=== PATIENT | male | born 1980 | race Caucasian/White ===

== ENCOUNTER 2024-02-01 10:08 | Emergency (ER) | payer SELFPAY ==
[2024-02-01] VITALS (9 sets, daily range): BP systolic 113–148; BP diastolic 79–101; PULSE 105–134; RESP 16–22; TEMP 36.6; O2SAT 95–99; BMI 27.4
--- NOTE | 2024-02-01 10:25 | PC.NURSE ---
Dr. Crespo at [facility] for pt eval
[2024-02-01 10:38] LABS: Appearance,Urine SL CLOUDY (Clear); Blood, Urine Negative (Negative); Color,Urine YELLOW (Yellow); Glucose,Urine (UA) Negative (Negative); Ketones,Urine Negative (Negative); Leukocyte Esterase,Urine Negative (Negative); Microscopic, Urine URINE MICROSCOPIC (MICROSCOPIC); Nitrate,Urine Negative (Negative); PH,Urine 6.5 (5.0-8.5); Protein,Urine TRACE (Negative); Specific Gravity, Urine 1.025 (1.005-1.030)
[2024-02-01 10:39] LABS: Occult Blood,Stool Negative (Negative)
[2024-02-01 10:42] LABS: Bilirubin,Urine 1+ (Negative)
--- NOTE | 2024-02-01 10:47 | PC.NURSE ---
nurses unable to obtain iv access. md @ bedside with ultrasound
--- NOTE | 2024-02-01 10:51 | HMH.EDGENADL ---
Discharge Plan Disposition Patient Disposition: Xfer Other Referrals Follow up/Referrals: Provider,Referral, MD [Primary Care Provider] - See instructions Clinical Impressions Clinical Impression: Nausea & vomiting, Hematemesis, Alcoholism, Melena, Acute alcoholic hepatitis, Acute calculous cholecystitis Instructions Patient Instructions: DI for Gastrointestinal Bleeding Discharge ED Provider: Zina Crespo General Adult HPI General Chief complaint: GI Bleed Stated complaint: vomiting blood abd pain intoxicated Time Seen by Provider: 02/01/24 10:12 Mode of Arrival: Ambulatory Source of Information: Patient and Relative Limitations: No Limitations Description of Symptoms (Recalled from ER Triage Doc. by RN): vomiting blood and passing bloody stool. drinks 1 gallon a day for 8 years. hep c History of Present Illness HPI narrative: Patient is a 43-year-old male presenting today with nausea and vomiting. Has a history of hepatitis C has never been treated never been diagnosed with cirrhosis that he knows of in the past does not know whether or not he has esophageal varices. Did injection drugs many years ago but has not used drugs for many years and is only been drinking. States he has been drinking 1 gallon of vodka daily for as long as he can remember. Has had nausea and vomiting states that he had multiple different colored types of vomit but at the end of vomiting had most recently red vomit states that it did look like blood but not whole blood. He has been retching numerous times in the emergency department without any active hematemesis. He did state he had a black-colored stool yesterday. No history of upper GI bleeds that he is aware. No other medical problems states he never goes to the doctor. Related Data Allergies Allergy/AdvReac Type Severity Reaction Status Date / Time No Known Allergies Allergy Verified 02/01/24 10:25 [facility] Disclaimer: The information contained in this section may have been updated after the patient was seen, as this information can be updated by other users. Social History Smoking Status: Current every day smoker alcohol intake: never current occupational status: other Travel in the last 8 weeks: None ROS Obtained: Yes All systems reviewed & no additional complaints except as documented Physical Exam General General appearance: alert, anxious and other (Agitated) Respiratory Respiratory exam: Present normal lung sounds bilaterally and respiratory distress Cardiovascular Cardiovascular exam: Present tachycardia Abdominal Exam Abdominal exam: Present soft and tenderness (Right upper quadrant tenderness) Neurological Exam Neurological exam: Present alert and oriented X3 Medical Decision Making [place] Inquiry Pt receiving controlled substance: No Vital Signs: 02/01/24 10:15 02/01/24 10:20 02/01/24 11:01 Temperature 97.9 F Temperature Source Oral Pulse Rate 120 H 120 H Pulse Rate [Right Radial] 134 H Respiratory Rate 20 22 20 Blood Pressure 148/101 H 113/87 Blood Pressure [Right Arm] 148/101 H Blood Pressure Mean 121 96 Blood Pressure Mean [Right Arm] 116 02 Sat by Pulse Oximetry 99 95 99 Oxygen Delivery Method Room Air 02/01/24 11:30 Temperature Temperature Source Pulse Rate 112 H Pulse Rate [Right Radial] Respiratory Rate 20 Blood Pressure 128/80 Blood Pressure [Right Arm] Blood Pressure Mean 93 Blood Pressure Mean [Right Arm] 02 Sat by Pulse Oximetry 97 Oxygen Delivery Method Lab Data Lab results reviewed: Yes I reviewed the patient's lab results. Lab Results 02/01/24 10:17: Urine Color Yellow, Urine Appearance Sl cloudy, Urine pH 6.5, Ur Specific [place] 1.025, Urine Protein Trace, Urine Glucose (UA) Negative, Urine Ketones Negative, Urine Blood Negative, Urine Nitrate Negative, Urine Bilirubin 1+ A, Urine Urobilinogen 1.0, Ur Leukocyte Esterase Negative, Urine RBC None, Urine WBC Occasional, Ur Squamous Epith Cells Occasional, Amorphous Sediment 2+, Urine Bacteria 1+ 02/01/24 10:30: Stool Occult Blood Negative 02/01/24 10:50: WBC 9.4, RBC 4.21 L, Hgb 13.8 L, Hct 42.3, MCV 100.6 H, MCH 32.8 H, MCHC 32.6, RDW 14.6, Plt Count 339, MPV 9.1, Neut % (Auto) 59.2, Lymph % (Auto) 32.1, [place] % (Auto) 6.9, Eos % (Auto) 0.5, Baso % (Auto) 1.3, Neut # (Auto) 5.6, Lymph # (Auto) 3.0, [place] # (Auto) 0.7, Eos # (Auto) 0.1, Baso # (Auto) 0.1, Sodium 143, Potassium 4.1, Chloride 109 H, Carbon Dioxide 26, Anion Gap 12.1, BUN 13, Creatinine 0.70, Estimated Creat Clear 144, Estimated GFR 123, Est GFR ( Amer) 149, Glucose 119 H, Calcium 9.2, Magnesium 2.0, Total Bilirubin 0.7, AST 265 H, ALT 154 H, Alkaline Phosphatase 124, Troponin I 0.03, Total Protein 8.3 H, Albumin 4.1, Globulin 4.2 H, Albumin/Globulin Ratio 1.0 L, Lipase 251, Plasma/Serum Alcohol 263 H 02/01/24 10:50 02/01/24 10:50 Orders (Tests/Meds): ED MEDICATIONS Generic Name Dose Route Start Last Admin Trade Name Jimmyq PRN Reason Stop Dose Admin Iopamidol 75 ml 02/01/24 11:46 02/01/24 11:47 Iopamidol-370 (76%);100ml Bottle IV 02/01/24 11:47 75 ml ONCE ONE Administration Sodium Chloride 10 ml 02/01/24 10:27 02/01/24 11:13 Sodium Chloride 0.9% 10ml Flush Syringe IV 03/02/24 10:26 10 ml NEEDED PRN Administration Maintain IV Site Sodium Chloride 10 ml 02/01/24 10:54 02/01/24 11:12 Sodium Chloride 0.9% 10ml Vial IV 03/02/24 10:53 10 ml NEEDED PRN Administration to Dilute Lorazepam inj Sodium Chloride 10 ml 02/01/24 11:46 02/01/24 11:47 Sodium Chloride 0.9% 10ml Syr (Rad Only) IV 02/01/24 11:47 10 ml ONCE ONE Administration Discontinued Medications Generic Name Dose Route Start Last Admin Trade Name Jimmyq PRN Reason Stop Dose Admin Lactated Ringer's 1,000 mls @ 999 mls/hr 02/01/24 10:30 02/01/24 11:12 Lactated Ringer's 1000 Ml Bag IV 02/01/24 11:30 999 mls/hr .Q1H1M ALINA Administration Lorazepam 1 mg 02/01/24 10:54 02/01/24 11:12 Lorazepam 2mg/Ml Vial IV 02/01/24 10:55 1 mg ONCE ONE Administration Ondansetron HCl 4 mg 02/01/24 10:30 02/01/24 11:12 Ondansetron 4mg/2ml Vial IV 02/01/24 10:31 4 mg ONCE ONE Administration ORDERS Category Date Time Status Type and Screen Stat BBK 02/01/24 10:[address] abdomen pelvis w con Stat Cat Scan 02/01/24 10:56 Taken POCUS Point of Care (ER Only) Stat Exams 02/01/24 11:43 Ordered Complete Blood Count Auto Diff Stat Lab 02/01/24 10:50 Completed Comprehensive Metabolic Panel Stat Lab 02/01/24 10:50 Completed Ethanol [Ethyl Alcohol] Stat Lab 02/01/24 10:50 Completed HCV RNA PCR, Quant Stat Lab 02/01/24 10:50 Received Lactic Acid Stat Lab 02/01/24 10:30 Ordered Lipase Stat Lab 02/01/24 10:50 Completed Magnesium Stat Lab 02/01/24 10:50 Completed Occult Blood,Stool Stat Lab 02/01/24 10:30 Completed PT/PTT Stat Lab 02/01/24 10:50 Received Trop I [Troponin I] Stat Lab 02/01/24 10:50 Completed Troponin I Q3H Lab 02/01/24 13:30 Ordered Troponin I Q3H Lab 02/01/24 16:30 Ordered UA [Urinalysis and Microscopic] Stat Lab 02/01/24 10:17 Completed ECG Data Tracing #1: I reviewed this ECG and interpreted as documented below: Ventricular rate of 109 sinus tachycardia no acute ischemic changes noted no significant conduction abnormalities normal axis Medical Decision Narrative: Patient is a 43-year-old male presents today with nausea and vomiting with historical complaints of hematemesis and melena. In the setting of a history of hepatitis C and chronic drinking the major concern would be decompensated cirrhosis and esophageal variceal bleeding. However patient has no stigmata of cirrhosis on my rectal exam he did not have melena his heme occult is negative. Also he has been vomiting numerous times on the emergency department without any hematemesis. So this is not a clear diagnosis at the moment. He does have significant abdominal tenderness will get a CT scan for further evaluation and management. He has some very mild withdrawal symptoms at the moment Ativan has been given IV fluids initiated and will await further diagnostic testing for additional therapeutic interventions. Currently holding off on PPI octreotide Rocephin etc. Reassessment 1155 patient feeling much better vital signs remained stable and are improving. Still has persistent and severe right upper quadrant abdominal pain and tenderness. CT scan was performed which I first interpreted shows a distended gallbladder with a gallstone in the neck of the gallbladder. Bedside ultrasound was subsequently performed he did have a positive sonographic Cadena's has extensive biliary sludge and large stone in the neck of the gallbladder all consistent with acute cholecystitis. However his clinical picture is extensively clouded given the fact that he has significant elevations in his LFTs consistent with a pattern of acute alcoholic hepatitis. Discriminant function is low no indication for IV steroids. Additionally with regards to the concern for possible varices cannot rule this out but I think it is unlikely at this point. Platelets are normal his LFT elevations are consistent with acute alcoholic hepatitis but any type of scoring system in this particular case would not be helpful to screen to him to a low risk. Specifically from a Glascow Blatchford score he is not can to be low risk as he was tachycardic, reported melena and has a disease of hepatic disease least an infectious disease that could cause liver disease. No definitive evidence of advanced fibrosis. From a noninvasive fibrosis scoring standpoint his fib 4 is 2.7 which would indicate at least F3 however the scoring system is likely skewed both from patient's age as well as the fact that he has an alternative diagnosis to be causing transaminase elevations. Nonetheless I cannot prescribe for him to a low risk category. Therefore I do not have gastroenterology at our hospital that can deal with possible variceal hemorrhaging. I did speak with her hospital medicine doctor who agrees that he would not be comfortable managing this here. I did not yet speak to a surgeon. Also from a cholecystitis standpoint his right upper quadrant abdominal discomfort could be from his acute inflammatory process not necessarily cholecystitis in this patient will need multidisciplinary care to further differentiate this. I will discuss the case with [facility]. Reassessment 12:07 PM patient remains hemodynamically stable I spoke with Dr. Carvalho in [facility] who accepted the patient for further evaluation and management to the [facility] emergency department. Procedures Miscellaneous Procedure Procedure Performed: Limited RUQ ultrasound Indication: Abdominal pain Identified structures: -Gallbladder -Gallbladder wall -Common bile duct -Liver Findings: Positive sonographic Cadena's there is biliary sludge and a large gallstone in the gallbladder neck no pericholecystic fluid into gallbladder wall is normal Common bile duct not visualized Impression: Cholelithiasis with biliary sludge and positive sonographic Cadena's consistent with acute cholecystitis Images were to permanent archive The study was technically adequate CPT 50455-48 This study was performed by me, and I personally interpreted all images/videos. Based on my clinical judgement, these images were adequate and did not necessitate further imaging. Critical Care Critical Care Time Critical Care Time: Yes Attestation: On 02/01/24, the high probability of a clinically significant, sudden or life threatening deterioration of the following system(s) required my full and direct attention, intervention and personal management. The time I documented below is in addition to time spent performing reported procedures but includes the following listed in this critical care notation. Total Time Total Critical Care Time: 65
[2024-02-01 10:56] LABS: Amorphous Sediment,Urine 2+ /lpf; Bacteria,Urine 1+ /lpf; Squamous Epithelial Cell,Urine Occasional #/hpf (0-5); WBC,Urine Occasional #/hpf (0-3)
--- NOTE | 2024-02-01 10:56 | CT_ITS ---
PROCEDURE INFORMATION: Exam: CT Abdomen And Pelvis With Contrast Exam date and time: 02/01/2024 11:37 AM Age: 43 years old Clinical indication: Abdominal pain; Generalized; Additional info: Diffuse abd pain, n/v TECHNIQUE: Imaging protocol: Computed tomography of the abdomen and pelvis with contrast. Radiation optimization: All CT scans at this facility use at least one of these dose optimization techniques: automated exposure control; mA and/or kV adjustment per patient size (includes targeted exams where dose is matched to clinical indication); or iterative reconstruction. Contrast material: ISOVUE; Contrast volume: 75 ml; Contrast route: IV; COMPARISON: No relevant prior studies available. FINDINGS: Lungs: No consolidation, lung nodules, or pleural effusions. Diaphragm: Small to moderate hiatal hernia. Left hemidiaphragm is elevated. Liver: 8.5 cm low-density in segments 7 and 8 of the liver, and similar 10 cm low-density in the posterior left lobe of the liver probably represents fat deposition but liver masses should be considered. Liver has cirrhotic morphology and heterogeneous parenchyma. No enhancing liver masses 1.7 cm calcified stone in the neck of the gallbladder. Gallbladder and bile ducts: No abnormal gallbladder distension or wall thickening. Pancreas: No masses. No ductal dilation. Spleen: No biliary ductal dilatation spleen measures 11 cm and has no masses or surrounding fluid. Adrenal glands: No mass. Kidneys and ureters: No hydronephrosis, calcified stones, or masses. Stomach and bowel: No intestinal masses, bowel wall thickening, or abnormal luminal dilatation. Appendix: No evidence of appendicitis. Appendix is retrocecal. Intraperitoneal space: No free air. No masses or significant fluid collection. 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 Lymph nodes: No enlarged lymph nodes. Urinary bladder: No masses or asymmetric wall thickening. Reproductive: No abnormalities as visualized. Bones/joints: No acute fracture or bone lesions. Soft tissues: No masses or other abnormalities. IMPRESSION: 1. Probable focal fat deposition in the right and left lobes of the liver rather than low-density masses. Consider MRI of the abdomen without and with contrast for further characterization. 2. Liver cirrhosis. Portosystemic varices are suspected. 3. Cholelithiasis. No gallbladder wall thickening or biliary ductal dilatation. 4. No evidence of appendicitis. Appendix is retrocecal. 5. Small hiatal hernia.
--- NOTE | 2024-02-01 11:03 | ECG_ITS ---
APPROVED REPORT Exam: Resting ECG HR:109 bpm ECG Measurements Heart Rate 109 AXES [place] 123 P 56 QRSd 94 QRS 56 QT 337 T 81 QTc 401 Critical Notification Critical Value: No Conclusion SINUS TACHYCARDIA ABNORMAL RHYTHM ECG Electronically signed by : NONA CLARKE, 02/02/2024 01:40:03
[2024-02-01 11:10] LABS: Basophils # 0.1 K/mm3 (0-0.2); Basophils % 1.3 % (0.1-2.0); Eosinophils # 0.1 K/mm3 (0.0-0.4); Eosinophils % 0.5 % (0.1-12.0); Hematocrit 42.3 % (42.0-52.0); Hemoglobin 13.8 g/dL (14.1-18.0); Lymphocytes % 32.1 % (10-50); Mean Corpuscular HGB Conc 32.6 g/dL (31.8-35.4); Mean Corpuscular Hemoglobin 32.8 pg (27.0-31.2); Mean Corpuscular Volume 100.6 fl (80-94); Mean Platelet Volume 9.1 fl (7.4-10.4); Monocytes # 0.7 K/mm3 (0.1-1.0); Monocytes % 6.9 % (1.7-9.3); Neutrophils # 5.6 K/mm3 (1.8-7.8); Neutrophils % 59.2 % (37.0-80.0); Platelet Count 339 K/mm3 (142-424); Red Blood Count 4.21 M/mm3 (4.60-6.20); Red Cell Distribution Width 14.6 % (11.5-17.5); White Blood Count 9.4 K/mm3 (4.8-10.8)
--- NOTE | 2024-02-01 11:11 | PC.NURSE ---
Seizure pads in place. U/S guided IV to RUE by Dr. Crespo.
[2024-02-01] MEDS: SODIUM CHLORIDE 0.9% 10ML VIAL 10 ML IV (11:12)
[2024-02-01] MEDS: ONDANSETRON 4MG/2ML VIAL 4 MG IV (11:12)
[2024-02-01] MEDS: LACTATED RINGERS 1000ML 1,000 ML 999 ML IV (11:12)
[2024-02-01] MEDS: LORazepam 2MG/ML VIAL 1 MG IV (11:12)
[2024-02-01] MEDS: SODIUM CHLORIDE 0.9% 10ML FLUSH SYRINGE 10 ML IV (11:13)
[2024-02-01 11:17] LABS: Chloride 109 mmol/L (98-107); Sodium 143 mmol/L (136-145)
[2024-02-01 11:18] LABS: Potassium 4.1 mmoL/L (3.5-5.1)
[2024-02-01 11:20] LABS: Alanine Aminotransferase 154 U/L (12-78); Albumin Level 4.1 g/dl (3.5-5.0); Alkaline Phosphatase 124 U/L (38-126); Anion Gap 12.1 mEq/L (5-15); Aspartate Amino Transferase 265 U/L (17-59); Bilirubin,Total 0.7 mg/dl (0.2-1.3); Blood Urea Nitrogen 13 mg/dl (9-20); Calcium 9.2 mg/dl (8.4-10.2); Carbon Dioxide 26 mmol/L (22.0-30.0); Creatinine Clearance Estimated 144 mL/min (50-200); Estimated Glomerular Filt Rate 123 ml/min (>60); GFR (African American) 149 ML/MIN (>60); Globulin 4.2 g/dL (1.3-3.2); Glucose 119 mg/dl (74-100); Lipase 251 U/L (23-300); Total Protein,Serum 8.3 g/dl (6.3-8.2)
[2024-02-01 11:21] LABS: Ethyl Alcohol 263 mg/dl (0-10)
[2024-02-01 11:24] LABS: Activated Partial Thrombo Time 27.3 seconds (22.8-30.6); INR 1.06 (0.9-1.1); Prothrombin Time 11.4 seconds (10.1-12.5)
[2024-02-01 11:33] LABS: Troponin I 0.03 ng/ml (0.00-0.034)
--- NOTE | 2024-02-01 11:37 | PC.NURSE ---
pt to ct scan via stretcher
--- NOTE | 2024-02-01 11:37 | PC.NURSE ---
pt's sister brought back and updated on POC at this point.
--- NOTE | 2024-02-01 11:42 | PC.NURSE ---
PT returned to room from CT
--- NOTE | 2024-02-01 11:44 | PC.NURSE ---
Dr. Crespo at BS
[2024-02-01] MEDS: IOPAMIDOL-370 (76%);100ML BOTTLE 75 ML IV (11:47)
[2024-02-01] MEDS: SODIUM CHLORIDE 0.9% 10ML SYR (RAD ONLY) 10 ML IV (11:47)
--- NOTE | 2024-02-01 11:54 | PC.NURSE ---
calling [facility] for transfer
--- NOTE | 2024-02-01 12:02 | PC.NURSE ---
Dr Crespo s[facility]
--- NOTE | 2024-02-01 12:18 | PC.NURSE ---
Called report to [facility] RN.
--- NOTE | 2024-02-01 12:23 | PC.NURSE ---
Updated pt' sister on POC and transfer to [facility] [[email or web address] Pt resting comfortably at this time.
[2024-02-01] MEDS: MVI, ADULT NO.1 WITH VIT K 10 ML, THIAMINE HCL 100 MG, MAGNESIUM SULFATE 2 GM in LACTAT... 150 ML IV (13:10)
--- NOTE | 2024-02-01 13:18 | PC.NURSE ---
Rounded on pt and he is sleeping. Seizure pads remain in place. EMS is unavailable to transfer yet d/t [place].
[2024-02-01 13:30] LABS: Lactic Acid 1.9 mmol/L (0.7-2.1)
--- NOTE | 2024-02-01 14:22 | PC.NURSE ---
Rounded on pt. Pt resting quietly with eyes closed. Respirations are even and unlabored. Call light remains within reach.
--- NOTE | 2024-02-01 14:22 | PC.NURSE ---
Spoke with Nan at [facility] to inform patient is needing transfer to [facility] ER for cholecystitis, and acute alcohol hepatitis. Reports that when second truck returns back in [facility] they will arrive to [place] for transport.
== END 2024-02-01 14:58 | disposition other institution (70) ==
PROVIDERS: Emergency Provider Student in an Organized Health Care Education/Training Program
DX: K92.1 Melena (principal); K92.0 Hematemesis; R00.0 Tachycardia, unspecified; K70.10 Alcoholic hepatitis without ascites; F10.188 Alcohol abuse with other alcohol-induced disorder; K80.00 Calculus of gallbladder with acute cholecystitis without obstruction; F17.210 Nicotine dependence, cigarettes, uncomplicated
CPT/HCPCS: 74177; 80053; 81001; 82272; 83605; 83690; 83735; 84484; 85025; 85610; 85730; 86850; 87522; 93005; 96361; 96365; 96366; 96375; 99285; G0328; J2405; Q9967

== ENCOUNTER 2025-05-15 15:02 | Emergency (ER) | payer MEDICAID, SELFPAY ==
--- OUTSIDE RECORDS SUMMARY | 2025-03-26 18:33 | XMS_ITS | Encounter Summary ---
Author Organization [place] [address] Care Team Providers Care Agency Owner Name Role Phone No Pcp, Per Patient Primary Care Provider Maude stone Reason for Visit * Reason Comments Abdominal Pain Ruq Abd pain, gall b ladder issue for 2 years; +v for a week; +etoh Encounter Details Date Type Department Care Team (Late st Contact Info) Description 03/26/2025 6:33 PM EDT - 03/26/2025 11:08 PM EDT Emergency [facility] Emergency [address] [place] [address]. [place] [address] Rick Knight MD [address] [place] [address] Epigastric abdominal pain (Primary Dx); Alcoholic intoxication without complication; Alcohol abuse; Chronic liver disease; Elevated lipase Discharge Disposition: Home or Self Care Social History Tobacco Use Types Packs/Day Years Used Date Smoking Tobacco: Every Day Cigarettes Smokeless Tobacco: Never Tobacco Cessation:Ready to Q uit: Not Asked; Counseling Given: Not Answered Alcohol Use Standard Drinks/Week Comments Yes 0 (1 standard drink = 0.6 oz pur e alcohol) daily Sex and Gender Information Value Date Recorded Sex Assigned at Not on file Legal Sex Male 6:03 PM EDT Gender Identity Not on file Sexual Orientation Not on file documented as of this encounter Last Filed Vital Signs Vital Sign Reading Time Taken Comments Blood Pressure 121/83 03/26/2025 7:48 PM EDT Pulse 88 03/26/2025 11:00 PM EDT Temperature 36.6 C (97.9 F) 03/26/2025 6:08 PM EDT Respiratory Rate 18 03/26/2025 11:00 PM EDT Oxygen Saturation 94% 03/26/2025 11:00 PM EDT Inhaled Oxygen Concentration - - Weight 73 kg (161 lb) 03/26/2025 6:08 PM EDT Height - - Body Mass Index - - documented in this encounter Functional Status * Suicide Severity Rating Answer Date of Assessment Author No Risk 03/26/2025 6:07 PM EDT Josefa Buckner RN * [place] Suicide Severity Rating Scale (Q shift for moderate and high) Question Answer Date of Assessment Author 1. In the past month, have y ou wished you were or wished you could go to sleep and not wake up? 0 03/26/2025 6:07 PM EDT Josefa Buckner RN 2. In the past month, have y ou actually had any thoughts of killing yourself? (If no, skip to question 6) 0 03/26/2025 6:07 PM EDT Josefa Buckner RN 6. Have you ever done anythi ng, started to do anything, or prepared to do anything to end your life? 0 03/26/2025 6:07 PM EDT Josefa Buckner RN documented as of this encounter Discharge Instructions * Discharge Instructions* Aicha Fine PA-C - 03/26/2025 10:05 PM EDT Increase hydration with water and electrolyte drinks. Follow-up with [facility] for alcohol use and with general surgery for reassessment of gallbladder. Return to the ED for any severe worsening symptoms. documented in this encounter Discharge Disposition Disposition Code Departure Means Destination Comment s Home or Self Detention Discharge instructions reviewed. Patient had no questions. documented in this encounter ED Notes * Aicha Fine PA-C - 03/26/2025 6:03 PM EDT Chief Complaint Chief Complaint Patient presents with Abdominal Pain Ruq Abd pain, gall bladder issue for 2 years; +v for a week; +etoh HPI Patient seen for supervising physician, Dr. Knight, who was available for consultation throughout patient encounter. Sulaiman Heredia is a 44 y.o. male with PMH significant for anxiety, depression who presents to the emergency department via private vehicle for evaluation of abdominal pain. Patient reports right upper quadrant abdominal pain for the past 8 days. Also endorses vomiting the past 1 week. Reports 10+ episodes of nonbloody nonbilious emesis daily. Also endorses occasional watery diarrhea. Denies melena or hematochezia. Denies fever/chills. Endorses daily alcohol and marijuana use and occasional methuse. He reports drinking 1.5 to 2 L of liquor, typically rum, daily. So far today, he has had a fifth. No history of prior abdominal surgeries. No dysuria, hematuria, increased urinary frequency, flank pain. No chest pain or shortness of breath. No other concerns or complaints. Review of Systems A complete review of systems is negative or noncontributory except as noted in the HPI. Past Medical History Past Medical History: Diagnosis Date Anxiety Depression Family History No family history on file. Social History Social History Socioeconomic History Marital status: Single Spouse name: None Number of children: None Years of education: None Highest education level: None Tobacco Use Smoking status: Every Day Types: Cigarettes Smokeless tobacco: Never Substance and Sexual Activity Alcohol use: Yes Comment: daily Drug use: Yes Types: Marijuana Social Drivers of Health Food Insecurity: No Food Insecurity (02/03/2024) Received from [facility] Hunger Vital Sign Worried About Running Out of Food in the Last Year: Never true Ran Out of Food in the Last Year: Never true Transportation Needs: No Transportation Needs (02/03/2024) Received from [facility] PRAPARE - Transportation Lack of Transportation (Medical): No Lack of Transportation (Non-Medical): No Intimate Partner Violence: Not At Risk (02/03/2024) Received from [facility] Humiliation, Afraid, Rape, and Kick questionnaire Fear of Current or Ex-Partner: No Emotionally Abused: No Physically Abused: No Sexually Abused: No Housing Stability: Unknown (02/03/2024) Received from [facility] Housing Stability Vital Sign Unable to Pay for Housing in the Last Year: No Unstable Housing in the Last Year: No Surgical History History reviewed. No pertinent surgical history. Current Medications No current facility-administered medications on file prior to encounter. No current outpatient medications on file prior to encounter. Allergies No Known Allergies Physical Exam Vital Signs: ED Triage Vitals [03/26/25 1808] Temp 97.9 ??F (36.6 ??C) Pulse (!) 122 Resp 20 BP 141/60 SpO2 98 % Height Weight 161 lb (73 kg) Constitutional: Well developed and well nourished. No acute distress. Nontoxic appearance. Anxious,unable to sit still. Normotensive, afebrile. HENT: Head: Normocephalic and atraumatic. Ear: External ears normal. Nose: Nose normal. Mouth/Throat: Oropharynx clear and moist. No erythema, exudates, or enlargement. Uvula midline. Airway patent. Eyes: Conjunctivae normal, no discharge. EOMI. PERRL. Neck: Supple. Normal ROM. No cervical adenopathy. No tenderness. No stridor. Cardiovascular: Mildly tachycardic rate of 108. Normal rhythm. No murmurs, rubs, or gallops. Pulmonary/Chest: Respiratory effort normal. No distress. Breath sounds clear and equal bilaterally.No wheezing, rales, or rhonchi. No chest wall tenderness. Abdomen: Normoactive bowel sounds. Abdomen is soft and nondistended. Diffuse tenderness, but worsein the epigastric and right upper quadrant regions. Mild voluntary guarding present. No rebound or rigidity. No flank or CVA tenderness. No suprapubic tenderness. No pulsatile masses or ecchymosis. Skin: Warm and dry. No erythema or rash. Musculoskeletal: No deformity or swelling. Compartments soft. Extremities: Warm and well perfused. Intact pulses. No edema or tenderness. Neurologic: Awake, alert and oriented x3. No focal deficits noted. Cranial nerves appear intact. Normal motor and sensory function. Psychiatric: Affect normal, judgment normal, mood normal. ED Procedures Procedures Radiology/EKG/Labs Results for orders placed or performed during the hospital encounter of 03/26/25 CT ABD PEL ED FAST W CONTRAST Narrative CT ABDOMEN AND PELVIS WITH CONTRAST (FAST), 03/26/2025 8:03 PM CLINICAL HISTORY: -Epigastric and right upper quadrant abdominal pain, elevated lipase, chronic daily alcohol use. COMPARISON: None. PROCEDURE COMMENTS: Multi-detector CT scanning of the abdomen and pelvis with multiplanar reformatting per expedited protocol. Isovue 370 IV contrast given as recorded in EPIC. Dose 1 : CT DLP Total : 271.64 mGycm DLP Spiral Max : 267.95 mGycm Maximum CTDI Vol : 5.65 mGy SSDE : 4.0115 mGy SSDE Diameter : 44.8 cm SSDE Source : Lat FINDINGS: LOWER THORAX: Lung bases unremarkable. ABDOMEN AND PELVIS: Hepatomegaly with diffuse hepatic low-attenuation and nodular hepatic contour. Spleen, pancreas, and adrenal glands unremarkable. Left nephrolithiasis. No hydronephrosis. Cholelithiasis. No bowel obstruction or acute inflammatory process. Appendix is not confidently identified. No abnormal mass, fluid, or adenopathy in the pelvis. No acute osseous abnormality. Impression Findings suggestive of fatty liver with superimposed chronic liver disease. Left nephrolithiasis without hydronephrosis. Cholelithiasis. - Note: Radiology results need to be interpreted within a comprehensive clinical context. If you have questions about the radiology report, please contact the office of the ordering clinician. UA W/REFLEX TO CULTURE Specimen: Urine, Clean Catch Narrative The following orders were created for panel order UA W/REFLEX TO CULTURE. Procedure Abnormality Status --------- ------ URINALYSIS REFLEX[[id number]] Final result EXTRA CLEMENTS URINE CX[[id number]] Final result Please view results for these tests on the individual orders. URINALYSIS REFLEX Result Value Ref Range UA Color Yellow UA Appear Clear Clear UA Glucose Negative Negative mg/dL UA Ketones Negative Negative mg/dL UA Blood Negative Negative UA pH 6.0 5.0 - 8.0 pH UA Protein Negative Negative mg/dL UA Urobilinogen 1.0 <=1 mg/dL UA Bili Negative Negative UA Nitrite Negative Negative UA Leuk Est Negative Negative UA Spec Grav 1.025 1.001 - 1.035 no units CBC WITH DIFF Result Value Ref Range WBC 6.5 3.7 - 10.3 x10(3)/mcL RBC 4.42 (L) 4.60 - 6.10 x10(6)/mcL Hgb 14.6 13.7 - 17.5 g/dL Hct 43.2 40.0 - 51.0 % MCV 97.7 80.0 - 100.0 fL MCH 33.0 26.0 - 34.0 pg MCHC 33.8 30.7 - 35.5 g/dL RDW 14.0 <=14.9 % Platelet 164 155 - 369 x10(3)/mcL MPV 10.4 8.8 - 12.5 fL Neut Percent 45.9 % Imm Gran% 0.3 % Lymph Percent 34.7 % [place] Percent 15.8 % Eos Percent 2.2 % Baso Percent 1.1 % Neut # 3.0 1.6 - 6.1 x10(3)/mcL IMMGRAN# 0.0 0.0 - 0.1 x10(3)/mcL Lymph # 2.3 1.2 - 3.9 x10(3)/mcL [place] # 1.0 (H) 0.3 - 0.9 x10(3)/mcL Eos# 0.1 0.0 - 0.5 x10(3)/mcL Baso # 0.1 0.0 - 0.1 x10(3)/mcL COMPREHENSIVE METABOLIC PANEL Result Value Ref Range Sodium 138 136 - 145 mmol/L Potassium 4.6 3.5 - 5.0 mmol/L Chloride 106 98 - 107 mmol/L Total CO2 19 (L) 22 - 29 mmol/L Anion Gap 13 7 - 16 mmol/L Calcium 8.6 8.6 - 10.4 mg/dL Glucose Lvl 95 70 - 99 mg/dL BUN 13 6 - 20 mg/dL Creatinine 0.72 0.67 - 1.30 mg/dL Albumin 4.1 3.5 - 5.2 gm/dL Total Protein 7.9 6.4 - 8.3 gm/dL Bili Total 0.4 0.2 - 1.4 mg/dL ALT 267 (H) <=41 U/L AST 294 (H) <=40 U/L Alk Phos 88 40 - 129 U/L eGFR (CKD-EPIcr 2020) 116 >=60 mL/min/1.73 m2 LIPASE LEVEL Result Value Ref Range Lipase Lvl 100 (H) 13 - 60 U/L ALCOHOL MEDICAL Result Value Ref Range Alcohol Medical 245 (H) <=10 mg/dL LACTIC ACID Result Value Ref Range Lactic Acid 1.7 0.5 - 1.9 mmol/L DRUGS OF ABUSE WITH REFLEX TO CONFIRMATION, URINE Result Value Ref Range 6 AM (Heroin) Absent Cutoff 10 ng/mL Amphetamines Presumptive Pos (A) Cutoff 500 ng/mL Barbiturates Absent Cutoff 200 ng/mL Benzodiazepines Absent Cutoff 200 ng/mL Buprenorphine Absent Cutoff 5 ng/mL Cannabinoid Metabolite Presumptive Pos (A) Cutoff 50 ng/mL Cocaine Metabolite Absent Cutoff 150 ng/mL Fentanyl Absent Cutoff 5 ng/mL Methadone and Metabolite Absent Cutoff 300 ng/mL Opiate Absent Cutoff 300 ng/mL Oxycodone Lvl Absent Cutoff 100 ng/mL Urine Creatinine 175.0 mg/dL Narrative These drug classes have been qualitatively screened by immunoassay and are for medical purposes only. Results should not be used for non-medical purposes. Results reported as presumptive positive will be sent for confirmation. Due to possible factors, such as, dilute/adulterated urine, concentration of drug/metabolite being below the cut-off, or antibody specificity of test reagent, a negative result does not rule out druguse. These results are only valid for urine specimens. Any contamination with vaginal pool/amniotic fluid could cause erroneous results. EK EKG 12 LEAD Narrative NOTICE: Preliminary tracing available for review; Final Interpretation by physician to follow. 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 Knight. Pertinent labs and imaging studies reviewed. History was obtained fromthe patient. Medical records reviewed via [employer]. This is a 44 y.o. male who presented to the ED for evaluation of abdominal pain as described in HPI. Differentials included but were not limited to pancreatitis versus cholecystitis versus colitis versus bacterial peritonitis versus gastroenteritis versus gastritis. On arrival, patient was nontoxic appearing and in no acute distress. He was noted to be slightly tachycardic, but afebrile, normotensive and not hypoxic. On physical exam, patient was anxious and unable to sit still. He had diffuse abdominal tenderness, but worst in the right upper quadrant and epigastric regions. He also had some mild voluntary guarding, but no other peritoneal signs or evidenceof acute abdomen. Laboratory workup revealed a lipase of 100, alcohol level of 245, and elevated liver enzymes. Urinalysis also positive for cannabis and vitamins. Remaining blood work negative for leukocytosis, anemia, electrolyte derangement, renal dysfunction. Lactic normal. Urinalysis without infection or blood.CT of the abdomen with findings suggestive of fatty liver superimposed on chronic liver disease as well as left nephrolithiasis and cholelithiasis. No acute gallbladder obstruction or thickening. No noted pancreatic findings. At this point, patient was deemed appropriate for discharge and outpatient management. He was provided referrals to surgery and [facility] with alcohol abstinence. PCP referral also provided. Recommended increase hydration with fluid and electrolyte drinks. Strict return precautions were discussed and the patient voiced understanding. All questions were answered. Patient was discharged in stable condition. ED Clinical Impression: Epigastric abdominal pain (primary encounter diagnosis) Alcoholic intoxication without complication Alcohol abuse Chronic liver disease Elevated lipase Condition at Discharge/Transfer from Department: Stable This chart was completed using voice recognition technology and may contain unintended errors Aicha Fine PA-C 03/26/25 2237 Cosigned by Rick Knight MD at 03/27/2025 4:40 PM EDT Associated attestation - Rick Knight MD - 03/27/2025 4:40 PM EDT I have reviewed the chief complaint and history of present illness and review of systems as well aspast medical/social/family history sections for this patient. I have examined this patient, including [id number] encounter, and participated in the care of this patient. I have reviewed the pertinent clinical information including physical exam, labs, radiographic studies and the plan. This patient was seen in coordination with the PA/BUILDING MAINTENANCE CUSTODIAN. EKG Interpretation Interpreted by me Rhythm: Sinus tachycardia Rate: 102 [place]: normal Ectopy: none Conduction: normal ST Segments: no acute change T Waves: no acute change Q Waves: none Clinical Impression: no acute changes and normal EKG This chart was completed using voice recognition technology and may contain unintended errors documented in this encounter Plan of Treatment Not on file documented as of this encounter Procedures Procedure Name Priority Date/Time Associated Diagnosis Comments SCANNED EKG 03/28/2025 9:[address] ABD PEL ED FAST W CONTRAST STAT 03/26/2025 8:03 PM EDT CBC WITH DIFF STAT 03/26/2025 7:24 PM EDT ALCOHOL MEDICAL STAT 03/26/2025 7:07 PM EDT LIPASE LEVEL STAT 03/26/2025 7:05 PM EDT LACTIC ACID STAT 03/26/2025 7:05 PM EDT COMPREHENSIVE METABOLIC PANEL STAT 03/26/2025 7:05 PM EDT EK EKG 12 LEAD STAT 03/26/2025 6:24 PM EDT URINALYSIS REFLEX STAT 03/26/2025 6:1 0 PM EDT DRUG CONFIRMATION, CANNABINOIDS - URINE Routine 03/26/2025 6:10 PM EDT DRUG CONFIRMATION, AMPHETAMINES - URINE Routine 03/26/2025 6:10 PM EDT UA W/REFLEX TO CULTURE STAT 6:10 PM EDT EXTRA CLEMENTS URINE CX STAT 03/26/2025 6 :10 PM EDT DRUGS OF ABUSE WITH REFLEX TO CONFIRMATION, URINE Routine 03/26/2025 6:10 PM EDT documented in this encounter Results * SCANNED EKG (03/28/2025 9:30 AM EDT) Anatomical Region Laterality Modality Other 03/28/2025 9:30 AM EDT us Unknown Provider IMG ECG ORDERABLES Final Result * CT ABD PEL ED FAST W CONTRAST (03/26/2025 8:03 PM EDT) Anatomical Region Laterality Modality Abdomen, Pelvis Computed Tomogra phy 03/26/2025 8:03 PM EDT Impressions 03/26/2025 8:29 PM EDT Findings suggestive of fatty liver with superimposed chronic liver disease. Left nephrolithiasis without hydronephrosis. Cholelithiasis. - Note: Radiology results need to be interpreted within a comprehensive clinical context. If you have questions about the radiology report, please contact the office of the ordering clinician. Narrative 03/26/2025 8:[address] ABDOMEN AND PELVIS WITH CONTRAST (FAST), 03/26/2025 8:03 PM CLINICAL HISTORY: -Epigastric and right upper quadrant abdominal pain, elevated lipase, chronic daily alcohol use. COMPARISON: None. PROCEDURE COMMENTS: Multi-detector CT scanning of the abdomen and pelvis with multiplanar reformatting per expedited protocol. Isovue 370 IV contrast given as recorded in EPIC. Dose 1 : CT DLP Total : 271.64 mGycm DLP Spiral Max : 267.95 mGycm Maximum CTDI Vol : 5.65 mGy SSDE : 4.0115 mGy SSDE Diameter : 44.8 cm SSDE Source : Lat FINDINGS: LOWER THORAX: Lung bases unremarkable. ABDOMEN AND PELVIS: Hepatomegaly with diffuse hepatic low-attenuation and nodular hepatic contour. Spleen, pancreas, and adrenal glands unremarkable. Left nephrolithiasis. No hydronephrosis. Cholelithiasis. No bowel obstruction or acute inflammatory process. Appendix is not confidently identified. No abnormal mass, fluid, or adenopathy in the pelvis. No acute osseous abnormality. Procedure Note William Hercules MD - 03/26/2025 CT ABDOMEN AND PELVIS WITH CONTRAST (FAST), 03/26/2025 8:03 PM CLINICAL HISTORY: -Epigastric and right upper quadrant abdominal pain,elevated lipase, chronic daily alcohol use. COMPARISON: None. PROCEDURE COMMENTS: Multi-detector CT scanning of the abdomen and pelviswith multiplanar reformatting per expedited protocol. Isovue 370 IV contrastgiven as recorded in EPIC. Dose 1 : CT DLP Total : 271.64 mGycm DLP Spiral Max : 267.95 mGycm Maximum CTDI Vol : 5.65 mGy SSDE : 4.0115 mGy SSDE Diameter : 44.8 cm SSDE Source : Lat FINDINGS: LOWER THORAX: Lung bases unremarkable. ABDOMEN AND PELVIS: Hepatomegaly with diffuse hepatic low-attenuationand nodular hepatic contour. Spleen, pancreas, and adrenal glandsunremarkable. Left nephrolithiasis. No hydronephrosis. Cholelithiasis. No bowel obstruction or acute inflammatory process. Appendix is notconfidently identified. No abnormal mass, fluid, or adenopathy in the pelvis. No acute osseous abnormality. IMPRESSION: Findings suggestive of fatty liver with superimposed chronic liverdisease. Left nephrolithiasis without hydronephrosis. Cholelithiasis. - Note: Radiology results need to be interpreted within a comprehensiveclinical context. If you have questions about the radiology report, please contactthe office of the ordering clinician. Aicha Fine PA-C IM CT ORDERABLES Final Result * (ABNORMAL) CBC WITH DIFF (03/26/2025 7:24 PM EDT) WBC 6.5 3.7 - 10.3 x10(3)/mcL 03/26/2025 7:28 PM EDT [facility] RBC 4.42(L) 4.60 - 6.10 x10(6)/mcL 03/26/2025 7:28 PM EDT [facility] Hgb 14.6 13.7 - 17.5 g/dL 03/26/2025 7:28 PM EDT [facility] Hct 43.2 40.0 - 51.0 % 03/26/2025 7:28 PM EDT [facility] MCV 97.7 80.0 - 100.0 fL 03/26/2025 7:28 PM EDT [facility] MCH 33.0 26.0 - 34.0 pg 03/26/2025 7:28 PM EDT [facility] MCHC 33.8 30.7 - 35.5 g/dL 03/26/2025 7:28 PM EDT [facility] RDW 14.0 <=14.9 % 03/26/2025 7:28 PM EDT [facility] Platelet 164 155 - 369 x10(3)/mcL 03/26/2025 7:28 PM EDT [facility] MPV 10.4 8.8 - 12.5 fL 03/26/2025 7:28 PM EDT [facility] Neut Percent 45.9 % 03/26/2025 7:28 PM EDT [facility] Comment:Neutrophils equals s egs plus bands Imm Gran% 0.3 % 03/26/2025 7:28 PM EDT [facility] Comment:Automated count of m etamyelocytes, myelocytes and promyelocytes. Lymph Percent 34.7 % 03/26/2025 7:28 PM EDT [facility] [place] Percent 15.8 % 03/26/2025 7:28 PM EDT [facility] Eos Percent 2.2 % 03/26/2025 7:28 PM EDT [facility] Baso Percent 1.1 % 03/26/2025 7:28 PM EDT [facility] Neut # 3.0 1.6 - 6.1 x10(3)/mcL 03/26/2025 7:28 PM EDT [facility] Comment:Neutrophils equals s egs plus bands IMMGRAN# 0.0 0.0 - 0.1 x10(3)/mcL 03/26/2025 7:28 PM EDT [facility] Comment:Automated count of m etamyelocytes, myelocytes and promyelocytes. An absolute IG <0.1 is reported as 0.0. Lymph # 2.3 1.2 - 3.9 x10(3)/mcL 03/26/2025 7:28 PM EDT [facility] [place] # 1.0(H) 0.3 - 0.9 x10(3)/mcL 03/26/2025 7:28 PM EDT [facility] Eos# 0.1 0.0 - 0.5 x10(3)/mcL 03/26/2025 7:28 PM EDT [facility] Baso # 0.1 0.0 - 0.1 x10(3)/mcL 03/26/2025 7:28 PM EDT [facility] Blood VENOUS BLOOD / Unknown Venipuncture / Unknown 03/26/2025 7:24 PM EDT 03/26/2025 7:26 PM EDT Aicha Fine PA-C HEMATOLOGY ORDERABLES Final Re sult Performing Organization Address [facility] de Phone Number [facility] [address] [place] [address] * (ABNORMAL) ALCOHOL MEDICAL (03/26/2025 7:07 PM EDT) Alcohol Medical 245(H) <=10 mg/dL 7:44 PM EDT [facility] Comment: 50-100 mg/dL - [place], slowing of reflexes, impaired visual acuity > 100 mg/dL - Depression of METER REPAIRER HELPER > 400 mg/dL - Fatalities reported Blood VENOUS BLOOD / Unknown Venipuncture / Unknown 03/26/2025 7:07 PM EDT 03/26/2025 7:10 PM EDT Aicha Fine PA-C CHEMISTRY ORDERABLES Final Res ult Performing Organization Address [facility] de Phone Number [facility] [address] [place] [address] * LACTIC ACID (03/26/2025 7:05 PM EDT) Pathologist [facility] Lactic Acid 1.7 0.5 - 1.9 mmol/L 03/26/2025 7:28 PM EDT [facility] Blood VENOUS BLOOD / Unknown Venipuncture / Unknown 03/26/2025 7:05 PM EDT 03/26/2025 7:10 PM EDT Aicha Fine PA-C CHEMISTRY ORDERABLES Final Res ult Performing Organization Address [facility] Co de Phone Number [facility] [address] [place] [address] * (ABNORMAL) LIPASE LEVEL (03/26/2025 7:05 PM EDT) Lipase Lvl 100(H) 13 - 60 U/L 03/26/2025 7:31 PM EDT [facility] Blood VENOUS BLOOD / Unknown Venipuncture / Unknown 03/26/2025 7:05 PM EDT 03/26/2025 7:10 PM EDT Aicha Fine PA-C CHEMISTRY ORDERABLES Final Res ult Performing Organization Address [facility] de Phone Number [facility] [address] [place] [address] * (ABNORMAL) COMPREHENSIVE METABOLIC PANEL (03/26/2025 7:05 PM EDT) Sodium 138 136 - 145 mmol/L 03/26/2025 7:31 PM EDT [facility] Potassium 4.6 3.5 - 5.0 mmol/L 03/26/2025 7:31 PM EDT [facility] Chloride 106 98 - 107 mmol/L 03/26/2025 7:31 PM EDT [facility] Total CO2 19(L) 22 - 29 mmol/L 03/26/2025 7:31 PM EDT [facility] Anion Gap 13 7 - 16 mmol/L 03/26/2025 7:31 PM EDT [facility] Calcium 8.6 8.6 - 10.4 mg/dL 03/26/2025 7:31 PM EDT [facility] Glucose Lvl 95 70 - 99 mg/dL 03/26/2025 7:31 PM EDT [facility] BUN 13 6 - 20 mg/dL 03/26/2025 7:31 PM EDT [facility] Creatinine 0.72 0.67 - 1.30 mg/dL 03/26/2025 7:31 PM EDT [facility] Albumin 4.1 3.5 - 5.2 gm/dL 03/26/2025 7:31 PM EDT [facility] Total Protein 7.9 6.4 - 8.3 gm/dL 03/26/2025 7:31 PM EDT [facility] Bili Total 0.4 0.2 - 1.4 mg/dL 03/26/2025 7:31 PM EDT [facility] ALT 267(H) <=41 U/L 03/26/2025 7:31 PM EDT [facility] AST 294(H) <=40 U/L 03/26/2025 7:31 PM EDT [facility] Alk Phos 88 40 - 129 U/L 03/26/2025 7:31 PM EDT [facility] eGFR (CKD-EPIcr 2020) 116 >=60 mL/min/1.7 3 m2 03/26/2025 7:31 PM EDT [facility] Comment:Estimated GFR was ca lculated using the CKD-EPIcr (2020) equation refit without race. The equation is recommended by the [employer] - [place] [employer]ph[employer] Task Force. Blood VENOUS BLOOD / Unknown Venipuncture / Unknown 03/26/2025 7:05 PM EDT 03/26/2025 7:10 PM EDT us Aicha Fine PA-C CHEMISTRY ORDERABLES Final Res ult [facility] [address] [place] [id number] * EK EKG 12 LEAD (03/26/2025 6:24 PM EDT) Anatomical Region Laterality Modality Electrocardiogra phy 03/26/2025 6:27 PM EDT Impressions 03/27/2025 2:16 PM EDT [facility] Test Date: 2025-03-26 Pat Name: SULAIMAN HEREDIA Department: DEPID Room: Gender: M [employer]: [facility] : 1980 Requested By: [facility] Order Number: [id number] Reading MD: Luis Guallpa MD Measurements Intervals [place] Rate: 102 P: 39 IL: 124 QRS: 21 QRSD: 117 T: 56 QT: 335 QTc: 437 Interpretive Statements SINUS TACHYCARDIA MODERATE INTRAVENTRICULAR CONDUCTION DELAY ABNORMAL RHYTHM ECG Electronically Signed On 03-27-2025 14:16:49 EDT by Luis Guallpa MD Narrative Procedure Note Luis Guallpa MD - 03/27/2025 IMPRESSION [facility] Test Date: 2025-03-26 Pat Name: SULAIMAN HEREDIA Department: DEPID Room: Gender: M [employer] Sprayer: [facility] : 1980 Requested By: [facility] Order Number: [id number] Reading MD: Luis Guallpa MD Measurements Intervals [place] Rate: 102 P: 39 [place]: 124 QRS: 21 QRSD: 117 T: 56 QT: 335 QTc: 437 Interpretive Statements SINUS TACHYCARDIA MODERATE INTRAVENTRICULAR CONDUCTION DELAY ABNORMAL RHYTHM ECG Electronically Signed On 03-27-2025 14:16:49 EDT by Luis Guallpa MD Rick Knight MD IMG ECG ORDERABLES Final Result * (ABNORMAL) DRUG CONFIRMATION, CANNABINOIDS - URINE (03/26/2025 6:10 PM EDT) THC 91(H) Cutoff 10 ng/mL ng/mL 03/27/2025 11:08 PM EDT [facility] THC Glucuronide >200(H) Cutoff 10 ng/mL ng/mL 03/27/2025 11:08 PM EDT [facility] Urine STRUCTURE OF URINARY TRACT PROPER / Unknown 03/26/2025 6:10 PM EDT 03/26/2025 8:02 PM EDT us Rick Knight MD URINE ORDERABLES Final Result [facility] [address] [facility] , [place] [address] * (ABNORMAL) DRUG CONFIRMATION, AMPHETAMINES - URINE (03/26/2025 6:10 PM EDT) Amphetamine <50 Cutoff 50 ng/mL ng/mL 03/27/2025 11:08 PM EDT [facility] Methamphetamine 181(H) Cutoff 50 ng/mL ng/mL 03/27/2025 11:08 PM EDT [facility] MDA <50 Cutoff 50 ng/mL ng/mL 03/27/2025 11:08 PM EDT [facility] MDMA <50 Cutoff 50 ng/mL ng/mL 03/27/2025 11:08 PM EDT [facility] MDEA <50 Cutoff 50 ng/mL ng/mL 03/27/2025 11:08 PM EDT [facility] Phentermine <50 Cutoff 50 ng/mL ng/mL 03/27/2025 11:08 PM EDT [facility] Urine STRUCTURE OF URINARY TRACT PROPER / Unknown 03/26/2025 6:10 PM EDT 03/26/2025 8:02 PM EDT Rick Knight MD URINE ORDERABLES Final Result [facility] [address] [facility] , [place] [address] * (ABNORMAL) DRUGS OF ABUSE WITH REFLEX TO CONFIRMATION, URINE (03/26/2025 6:10 PM EDT) 6 AM (Heroin) Absent Cutoff 10 ng/mL 03/26/2025 8:25 PM EDT [facility] Amphetamines Presumptive Pos(A) Cutoff 500 ng/mL 03/26/2025 8:25 PM EDT [facility] Barbiturates Absent Cutoff 200 ng/mL 03/26/2025 8:25 PM EDT [facility] Benzodiazepines Absent Cutoff 200 ng/mL 03/26/2025 8:25 PM EDT [facility] Buprenorphine Absent Cutoff 5 ng/mL 03/26/2025 8:25 PM EDT [facility] Cannabinoid Metabolite Presumptive Pos(A) Cutoff 50 ng/mL 03/26/2025 8:25 PM EDT [facility] Cocaine Metabolite Absent Cutoff 150 ng/mL 03/26/2025 8:25 PM EDT [facility] Fentanyl Absent Cutoff 5 ng/mL 03/26/2025 8:25 PM EDT [facility] Methadone and Metabolite Absent Cutoff 300 ng/mL 03/26/2025 8:25 PM EDT [facility] Opiate Absent Cutoff 300 ng/mL 03/26/2025 8:25 PM EDT [facility] Oxycodone Lvl Absent Cutoff 100 ng/mL 03/26/2025 8:25 PM EDT [facility] Urine Creatinine 175.0 mg/dL 03/26/20 8:25 PM EDT [facility] Comment: Greater than 20: Consistent with valid sample Greater than 2 but less than 20: Possible dilution Less than 2: Questionable valid sample Urine STRUCTURE OF URINARY TRACT PROPER / Unknown 03/26/2025 6:10 PM EDT 03/26/2025 8:02 PM EDT Narrative [facility] - 03/26/2025 8:25 PM EDT These drug classes have been qualitatively screened by immunoassay and are for medical purposes only. Results should not be used for non-medical purposes. Results reported as presumptive positive will be sent for confirmation. Due to possible factors, such as, dilute/adulterated urine, concentration of drug/metabolite being below the cut-off, or antibody specificity of test reagent, a negative result does not rule out drug use. These results are only valid for urine specimens. Any contamination with vaginal pool/amniotic fluid could cause erroneous results. us Rick Knight MD URINE ORDERABLES Final Result [facility] [address] [place] [address] * EXTRA CLEMENTS URINE CX (03/26/2025 6:10 PM EDT) Urine STRUCTURE OF URINARY TRACT PROPER / Unknown Collection / Unknown 03/26/2025 6:10 PM EDT 03/26/2025 6:27 PM EDT us Rick Knight MD MICROBIOLOGY - GENERAL ORDERABL ES Final Result Performing Organization Address City/State/[facility] Co de Phone Number [facility] [address] [place] [address] * URINALYSIS REFLEX (03/26/2025 6:10 PM EDT) UA Color Yellow 03/26/2025 6:30 PM EDT [facility] UA Appear Clear Clear 03/26/2025 6:30 PM EDT [facility] Glucose Negative Negative mg/dL 03/26/2025 6:30 PM EDT [facility]A Ketones Negative Negative mg/dL 03/26/2025 6:30 PM EDT [facility] Blood Negative Negative 03/26/2025 6:30 PM EDT [facility] pH 6.0 5.0 - 8.0 pH 03/26/2025 6:30 PM EDT [facility] Protein Negative Negative mg/dL 03/26/2025 6:30 PM EDT [facility] Urobilinogen 1.0 <=1 mg/dL 6:30 PM EDT [facility] Bili Negative Negative 03/26/2025 6:30 PM EDT [facility] UA Nitrite Negative Negative 03/26/2025 6:30 PM EDT [facility] Leuk Est Negative Negative 03/26/2025 6:30 PM EDT [facility]A Spec Grav 1.025 1.001 - 1.035 no units 03/26/2025 6:30 PM EDT [facility] Comment:Reference range darci d for random specimens only. Urine STRUCTURE OF URINARY TRACT PROPER / Unknown Collection / Unknown 03/26/2025 6:10 PM EDT 03/26/2025 6:27 PM EDT us Rick Knight MD URINE ORDERABLES Final Result [facility] [address] [facility] [place] [address] documented in this encounter Visit Diagnoses Diagnosis Epigastric abdominal pain- Primary Abdominal pain, epigastric Alcoholic intoxication without complication Alcohol abuse Alcohol abuse, unspecified Chronic liver disease Unspecified chronic liver disease without mention of alcohol Elevated lipase Other nonspecific abnormal serum enzyme levels documented in this encounter Administered Medications Inactive Administered Medications - up to 1 most recent administrations Medication Order MAR Action Action Date Dose Rate Site iopamidoL (ISOVUE-370) 370 mg iodine /mL (76 %) injection (LOW) 100 mL 100 mL, Intravenous, ONCE PRN, 1 dose, Starting on Sat03/26/25 at 2002, Until Sat03/26/25 at 2003, Radiography/Imaging, Radiology Procedure, VESICANT , CT (Contrasts) Given 03/26/2025 8:04 PM EDT 100 mL morphine injection 4 mg 4 mg, Intravenous, ONCE, 1 dose, On Sat03/26/25 at 194 Given 03/26/2025 7:47 PM EDT 4 mg ondansetron (ZOFRAN) injection 4 mg 4 mg, Intravenous, ONCE, 1 dose, On Sat03/26/25 at 194 Given 03/26/2025 7:47 PM EDT 4 mg sodium chloride 0.9 % 1,000 mL IV bolus Intravenous, ONCE, 1 dose, On Sat03/26/25 at 204, at 983.6 mL/hr IV Started 03/26/2025 9:43 PM EDT 983.6 mL/hr sodium chloride 0.9% syringe Intravenous, ONCE PRN, 1 dose, Starting on Sat03/26/25 at 2002, Until Sat03/26/25 at 2003, Line Care, Flush peripheral lines every 12 hours, central lines every 8 hours, and after IV medication, CT (Contrasts) Given 03/26/2025 8:04 PM EDT documented in this encounter Active and Recently Administered Medications Times are shown in EDT. Scheduled Medication Order 03/24/2025 03/25/2025 03/26/2025 morphine injection 4 mg (COMPLETED) 4 mg, Intravenous, ONCE, 1 dose, On Sat03/26/25 at 1944 1946 (Given - Provid er: Josefa Buckner RN) ondansetron (ZOFRAN) injection 4 mg (COMPLETED) 4 mg, Intravenous, ONCE, 1 dose, On Sat03/26/25 at 1945 1947 (Given - Provid er: Josefa Buckner RN) sodium chloride 0.9 % 1,000 mL IV bolus (COMPLETED) Intravenous, ONCE, 1 dose, On Sat03/26/25 at 2045, at 983.6 mL/hr 2143 (IV Started - P rovider: Bharathi Issa RN)[id number] (Stopped - Provider: Bharathi Issa RN) PRN Medication Order 03/24/2025 03/25/2025 03/26/2025 iopamidoL (ISOVUE-370) 370 mg iodine /mL (76 %) injection (LOW) 100 mL (COMPLETED) 100 mL, Intravenous, ONCE PRN, 1 dose, Starting on Sat03/26/25 at 2002, Until Sat03/26/25 at 2003, Radiography/Imaging, Radiology Procedure, VESICANT , CT (Contrasts) 2003 (Given - Provid er: Crystal Mas, RT) sodium chloride 0.9% syringe (COMPLETED) Intravenous, ONCE PRN, 1 dose, Starting on Sat03/26/25 at 2002, Until Sat03/26/25 at 2003, Line Care, Flush peripheral lines every 12 hours, central lines every 8 hours, and after IV medication, CT (Contrasts) 2003 (Given - Provid er: Crystal Mas, RT) documented in this encounter Care Teams Agency Owner Relationship Specialty Start Date End Date No Pcp, Per Patient PCP - General 03/26/25 documented as of this encounter
[2025-05-15] VITALS (8 sets, daily range): BP systolic 103–144; BP diastolic 65–94; PULSE 72–93; RESP 12–20; TEMP 36.9; O2SAT 95–99; BMI 25.4
--- OUTSIDE RECORDS SUMMARY | 2025-05-15 15:17 | XMS_ITS | Encounter Summary ---
Author Organization [facility] [place] [address] Care Team Providers Care Forming Mill Operator Name Role Phone No Pcp, Per Patient Primary Care Provider Maude stone Encounter Details Date Type Department Care Team (Latest Contact Info) Description 03/26/2025 Travel Social History Tobacco Use Types Packs/Day Years Used Date Smoking Tobacco: Every Day Cigarettes Smokeless Tobacco: Never Alcohol Use Standard Drinks/Week Comments Yes 0 (1 standard drink = 0.6 oz pur e alcohol) daily Sex and Gender Information Value Date Recorded Sex Assigned at Not on file Legal Sex Male 6:03 PM EDT Gender Identity Not on file Sexual Orientation Not on file documented as of this encounter Functional Status * Suicide Severity Rating Answer Date of Assessment Author No Risk 03/26/2025 6:07 PM EDT Josefa Buckner RN * [place] Suicide Severity Rating Scale (Q shift for [...] Buckner RN documented as of this encounter Plan of Treatment Not on file documented as of this encounter Visit Diagnoses Not on filedocumented in this encounter Care Teams Forming Mill Operator Relationship Specialty Start Date End Date No Pcp, Per Patient PCP - General 03/26/25 documented as of this encounter
--- OUTSIDE RECORDS SUMMARY | 2025-05-15 15:17 | XMS_ITS | Encounter Summary ---
Author Organization [place] [address] Care Team Providers Care Tester Rocket Engine Name Role Phone No Pcp, Per Patient Primary Care Provider Maude stone Reason for Visit * Reason Onset Date Comments ED Follow-Up Call 03/29/2025 g left w/ CA REs RN #'s Encounter Details Date Type Department Care Team (Late st Contact Info) Description 03/29/2025 Telephone [facility] [place] [address] Criss Robles, [employer] SURVEYOR Follow-Up Call ( left w/ Katie RN #'s) Social History Tobacco Use Types Packs/Day Years [...] on file documented as of this encounter Plan of Treatment Not on file documented as of this encounter Visit Diagnoses Not on filedocumented in this encounter Care Teams Tester [employer]ocket Engine Relationship Specialty Start Date End Date No Pcp, Per Patient PCP - General 03/26/25 documented as of this encounter
--- OUTSIDE RECORDS SUMMARY | 2025-05-15 15:17 | XMS_ITS | Clinical Summary ---
Author Organization [facility] Address [address] [place] [address] Phone Care Team Providers Care Makeup Sales Consultant Name Role Phone No Pcp, Per Patient Primary Care Provider Unavai lable Allergies No known active allergies Medications No known medications Encounters Date Type Department Care Team Description 03/29/2025 Telephone [facility] [address] [place] [address] Criss Robles RN ED Follow-Up Call (Msg left w/ Katie RN #'s) 03/26/2025 6:33 PM EDT - 03/26/2025 11:08 PM EDT Emergency [facility] Emergency [address] [address] Rick Knight MD Epigastric abdominal pain (Primary Dx); Alcoholic intoxication without complication; Alcohol abuse; Chronic liver disease; Elevated lipase Discharge Disposition: Home or Self Care 03/26/2025 Travel from Last 3 Months Medical History Medical History Date Comments Anxiety Depression Social History Tobacco Use Types Packs/Day Years [...] on file Sexual Orientation Not on file Obstetrics History Last Filed Vital Signs Vital Sign Reading [...] - - Body Mass Index - - Plan of Treatment Health Maintenance Due Date Last Done Comments Annual Wellness Exam 1983 DTaP/TDaP/Td (1 - Tdap) 1999 Hepatitis B Vaccine (1 of 3 - 19+ 3-dose series) 1999 Pneumococcal Vaccine 0-49 (1 of 2 - PCV) 1999 COVID-19 Vaccine ( - 2023-2 5 season) 2024 Influenza Vaccine (#1) 2025 Meningococcal B Vaccine Aged Out No l onger eligible based on patient's age to complete this topic Procedures Procedure Name Priority Date/Time Associated Diagnosis Comments SCANNED EKG 03/28/2025 9:[address] ABD PEL ED FAST W CONTRAST STAT 03/26/2025 8:03 PM EDT CBC WITH DIFF STAT 03/26/2025 7:24 PM EDT ALCOHOL MEDICAL STAT 03/26/2025 7:07 PM EDT LACTIC ACID STAT 03/26/2025 7:05 PM EDT LIPASE LEVEL STAT 03/26/2025 7:05 PM EDT COMPREHENSIVE METABOLIC PANEL STAT 03/26/2025 7:05 PM EDT EK EKG 12 LEAD STAT 03/26/2025 6:24 PM EDT DRUG CONFIRMATION, CANNABINOIDS - URINE Routine 03/26/2025 6:10 PM EDT DRUG CONFIRMATION, AMPHETAMINES - URINE Routine 03/26/2025 6:10 PM EDT DRUGS OF ABUSE WITH REFLEX TO CONFIRMATION, URINE Routine 03/26/2025 6:10 PM EDT URINALYSIS REFLEX STAT 03/26/2025 6:1 0 PM EDT UA W/REFLEX TO CULTURE STAT 6:10 PM EDT EXTRA CLEMENTS URINE CX STAT 03/26/2025 6 :10 PM EDT from Last 3 Months Results * SCANNED EKG (03/28/2025 9:30 AM [...] of the ordering clinician. Aicha Fine PA-C [facility] [place] ORDER[place]LES Final Result * (ABNORMAL) CBC WITH DIFF (03/26/2025 7:24 PM EDT) Pathologist [facility] WBC 6.5 3.7 - 10.3 x10(3)/mcL 03/26/2025 7:28 PM EDT [facility] RBC 4.42(L) 4.60 - 6.10 x10(6)/mcL 03/26/2025 7:28 PM EDT [facility] Hgb 14.6 13.7 - 17.5 g/dL 03/26/2025 7:28 PM EDT [facility] Hct 43.2 40.0 - 51.0 % 03/26/2025 7:28 PM EDT [facility] MCV 97.7 80.0 - 100.0 fL 03/26/2025 7:28 PM EDT [facility] MCH 33.0 26.0 - 34.0 pg 03/26/2025 7:28 PM EDT [facility] MCHC 33.8 30.7 - 35.5 g/dL 03/26/2025 7:28 PM EDT [facility] RDW 14.0 <=14.9 % 03/26/2025 7:28 PM EDT [facility] Platelet 164 155 - 369 x10(3)/mcL 03/26/2025 7:28 PM EDT [facility] MPV 10.4 8.8 - 12.5 fL 03/26/2025 7:28 PM EDT [facility] Neut Percent 45.9 % 03/26/2025 7:28 PM EDT [facility] Comment:Neutrophils equals s egs plus bands Imm Gran% 0.3 % 03/26/2025 7:28 PM EDT [facility] Comment:Automated count of m etamyelocytes, myelocytes and promyelocytes. Lymph Percent 34.7 % 03/26/2025 7:28 PM EDT [facility] [place] Percent 15.8 % 03/26/2025 7:28 PM EDT [facility] Eos Percent 2.2 % 03/26/2025 7:28 PM EDT [facility] Baso Percent 1.1 % 03/26/2025 7:28 PM EDT [facility] Neut # 3.0 1.6 - 6.1 x10(3)/mcL 03/26/2025 7:28 PM EDT [facility] Comment:Neutrophils equals s egs plus bands IMMGRAN# 0.0 0.0 - 0.1 x10(3)/mcL 03/26/2025 7:28 PM EDT [facility] Comment:Automated count of m etamyelocytes, myelocytes and promyelocytes. An absolute IG <0.1 is reported as 0.0. Lymph # 2.3 1.2 - 3.9 x10(3)/mcL 03/26/2025 7:28 PM EDT [facility] [place] # 1.0(H) 0.3 - 0.9 x10(3)/[facility] 03/26/2025 7:28 PM EDT [facility] Eos# 0.1 0.0 - 0.5 x10(3)/[facility] 03/26/2025 7:28 PM EDT [facility] Baso # 0.1 0.0 - 0.1 x10(3)/[facility] 03/26/2025 7:28 PM EDT [facility] Blood VENOUS BLOOD / Unknown Venipuncture / Unknown 03/26/2025 7:24 PM EDT 03/26/2025 7:26 PM EDT Aicha Fine PA-C HEMATOLOGY ORDERABLES Final Re sult [facility] [address] [place], [place] [id number] * (ABNORMAL) ALCOHOL MEDICAL (03/26/2025 7:07 PM EDT) [facility] 245(H) <=10 mg/dL 7:44 PM EDT [facility] Comment: 50-100 mg/dL - Flushing, slowing of reflexes, impaired visual acuity > 100 mg/dL - Depression of HEEL NAIL RASPER > 400 mg/dL - Fatalities reported Blood VENOUS BLOOD / Unknown Venipuncture / Unknown 03/26/2025 7:07 PM EDT 03/26/2025 7:10 PM EDT us Aicha Fine PA-C CHEMISTRY ORDERABLES Final Res ult Performing Organization Address [facility] Phone Number [facility] [address] [place] [address] * (ABNORMAL) LIPASE LEVEL (03/26/2025 7:05 PM EDT) Lipase Lvl 100(H) 13 - 60 U/L 03/26/2025 7:31 PM EDT [facility] Blood VENOUS BLOOD / Unknown Venipuncture / Unknown 03/26/2025 7:05 PM EDT 03/26/2025 7:10 PM EDT Aicha Fine PA-C CHEMISTRY ORDERABLES Final Res ult Performing Organization Address [facility] de Phone Number [facility] [address] [place] [address] * LACTIC ACID (03/26/2025 7:05 PM EDT) Lactic Acid 1.7 0.5 - 1.9 mmol/L 03/26/2025 7:28 PM EDT [facility] Blood VENOUS BLOOD / Unknown Venipuncture / Unknown 03/26/2025 7:05 PM EDT 03/26/2025 7:10 PM EDT Aicha Fine PA-C CHEMISTRY ORDERABLES Final Res ult Performing Organization Address [facility] de Phone Number [facility] [address] [place] [address] * (ABNORMAL) COMPREHENSIVE METABOLIC PANEL (03/26/2025 7:05 PM EDT) Sodium 138 136 - 145 mmol/L 03/26/2025 7:31 PM EDT [facility] Potassium 4.6 3.5 - 5.0 mmol/L 03/26/2025 7:31 PM EDT [facility] Chloride 106 98 - 107 mmol/L 03/26/2025 7:31 PM [facility] Total CO2 19(L) 22 - 29 mmol/L 03/26/2025 7:31 PM [facility] Anion Gap 13 7 - 16 mmol/L 03/26/2025 7:31 PM [facility] Calcium 8.6 8.6 - 10.4 mg/dL 03/26/2025 7:31 PM [facility] Glucose Lvl 95 70 - 99 mg/dL 03/26/2025 7:31 PM [facility] BUN 13 6 - 20 mg/dL 03/26/2025 7:31 PM [facility] Creatinine 0.72 0.67 - 1.30 mg/dL 03/26/2025 7:31 PM [facility] Albumin 4.1 3.5 - 5.2 gm/dL 03/26/2025 7:31 PM [facility] Total Protein 7.9 6.4 - 8.3 gm/dL 03/26/2025 7:31 PM [facility] Bili Total 0.4 0.2 - 1.4 mg/dL 03/26/2025 7:31 PM [facility] ALT 267(H) <=41 U/L 03/26/2025 7:31 PM [facility] AST 294(H) <=40 U/L 03/26/2025 7:31 PM [facility] Alk Phos 88 40 - 129 U/L 03/26/2025 7:31 PM [facility] eGFR (CKD-EPIcr 2020) 116 >=60 mL/min/1.7 3 m2 03/26/2025 7:31 PM [facility] Comment:Estimated GFR was ca lculated using the CKD-EPIcr (2020) equation refit without race. The equation is recommended by the National Kidney Foundation - [place] [employer] of Nephrology Task Force. Blood VENOUS BLOOD / Unknown Venipuncture / Unknown 03/26/2025 7:05 PM EDT 03/26/2025 7:10 PM EDT us Aicha Fine PA-C CHEMISTRY ORDERABLES Final Res ult [facility] [address] [place] [address] * EK EKG 12 LEAD (03/26/2025 6:24 PM EDT) Anatomical Region Laterality Modality Electrocardiogra phy 03/26/2025 6:2 7 PM EDT Impressions 03/27/2025 2:16 PM EDT [facility] Test Date: 2025-03-26 Pat Name: SULAIMAN HEREDIA Department: DEPID Room: Gender: M Cuff Runner: [facility] : 1980 Requested By: [facility] Order Number: [id number] Reading MD: Luis Guallpa MD Measurements Intervals [place] Rate: 102 P: 39 KS: 124 QRS: 21 QRSD: 117 T: 56 QT: 335 QTc: 437 Interpretive Statements SINUS TACHYCARDIA MODERATE INTRAVENTRICULAR CONDUCTION DELAY ABNORMAL RHYTHM ECG Electronically Signed On 03-27-2025 14:16:49 EDT by Luis Guallpa MD Narrative Procedure Note Luis Guallpa MD - 03/27/2025 IMPRESSION [facility] Test Date: 2025-03-26 Pat Name: SULAIMAN HEREDIA Department: DEPID Room: Gender: M Cuff Runner: [facility] : 1980 Requested By: [facility] Order Number: [id number] Reading MD: Luis Guallpa MD Measurements Intervals [place] Rate: 102 P: 39 KS: 124 QRS: 21 QRSD: 117 T: 56 QT: 335 QTc: 437 Interpretive Statements SINUS TACHYCARDIA MODERATE INTRAVENTRICULAR CONDUCTION DELAY ABNORMAL RHYTHM ECG Electronically Signed On 03-27-2025 14:16:49 EDT by Luis Guallpa MD us Rick Knight MD IMG ECG ORDERABLES Final Result * URINALYSIS REFLEX (03/26/2025 6:10 PM EDT) UA Color Yellow 03/26/2025 6:30 PM EDT [facility] UA Appear Clear Clear 03/26/2025 6:30 PM EDT [facility] UA Glucose Negative Negative mg/dL 03/26/2025 6:30 PM EDT [facility] UA Ketones Negative Negative mg/dL 03/26/2025 6:30 PM EDT [facility] UA Blood Negative Negative 03/26/2025 6:30 PM EDT [facility] UA pH 6.0 5.0 - 8.0 pH 03/26/2025 6:30 PM EDT [facility] UA Protein Negative Negative mg/dL 03/26/2025 6:30 PM EDT [facility] UA Urobilinogen 1.0 <=1 mg/dL 6:30 PM EDT [facility] UA Bili Negative Negative 03/26/2025 6:30 PM EDT [facility] UA Nitrite Negative Negative 03/26/2025 6:30 PM EDT [facility] UA Leuk Est Negative Negative 03/26/2025 6:30 PM EDT [facility] UA Spec Grav 1.025 1.001 - 1.035 no units 03/26/2025 6:30 PM EDT [facility] Comment:Reference range darci d for random specimens only. Urine STRUCTURE OF URINARY TRACT PROPER / Unknown Collection / Unknown 03/26/2025 6:10 PM EDT 03/26/2025 6:27 PM EDT us Rick Knight MD URINE ORDERABLES Final Result [facility] [address] [place] [address] * (ABNORMAL) DRUG CONFIRMATION, CANNABINOIDS - URINE (03/26/2025 6:10 PM EDT) THC 91(H) Cutoff 10 ng/mL ng/mL 03/27/2025 11:08 PM EDT [facility] THC Glucuronide >200(H) Cutoff 10 ng/mL ng/mL 03/27/2025 11:08 PM EDT [facility] Urine STRUCTURE OF URINARY TRACT PROPER / Unknown 03/26/2025 6:10 PM EDT 03/26/2025 8:02 PM EDT us Rick Knight MD URINE ORDERABLES Final Result [facility], [facility] [address] , [place] [address] * (ABNORMAL) DRUG CONFIRMATION, AMPHETAMINES - URINE (03/26/2025 6:10 PM EDT) Amphetamine <50 Cutoff 50 ng/mL ng/mL 03/27/2025 11:08 PM EDT [facility] Methamphetamine 181(H) Cutoff 50 ng/mL ng/mL 03/27/2025 [...] 03/27/2025 11:08 PM EDT [facility] Urine STRUCTURE OF URINARY TRACT PROPER / Unknown 03/26/2025 6:10 PM EDT 03/26/2025 8:02 PM EDT us Rick Knight MD URINE ORDERABLES Final Result [facility] [address] , [place] [address] * EXTRA CLEMENTS URINE CX (03/26/2025 6:10 PM EDT) Urine STRUCTURE OF URINARY TRACT PROPER / Unknown Collection / Unknown 03/26/2025 6:10 PM EDT 03/26/2025 6:27 PM EDT us Rick Knight MD MICROBIOLOGY - GENERAL ORDERABL ES Final Result [facility] [address] [place] [address] * (ABNORMAL) DRUGS OF ABUSE WITH REFLEX TO CONFIRMATION, URINE (03/26/2025 6:10 PM EDT) 6 AM (Heroin) Absent Cutoff 10 ng/mL 03/26/2025 8:25 PM EDT [facility] Amphetamines Presumptive Pos(A) Cutoff 500 ng/mL 03/26/2025 8:25 PM EDT [facility] Barbiturates Absent Cutoff 200 ng/mL 03/26/2025 8:25 PM EDT [facility] Benzodiazepines Absent Cutoff 200 ng/mL 03/26/2025 8:25 PM EDT [facility] Buprenorphine Absent Cutoff 5 ng/mL 03/26/2025 8:25 PM EDT [facility] Cannabinoid Metabolite Presumptive Pos(A) Cutoff 50 ng/mL 03/26/2025 8:25 PM EDT [facility] Cocaine Metabolite Absent Cutoff 150 ng/mL 03/26/2025 8:25 PM EDT [facility] Fentanyl Absent Cutoff 5 ng/mL 03/26/2025 8:25 PM EDT [facility] Methadone and Metabolite Absent Cutoff 300 ng/mL 03/26/2025 8:25 PM EDT [facility] Opiate Absent Cutoff 300 ng/mL 03/26/2025 8:25 PM EDT [facility] Oxycodone Lvl Absent Cutoff 100 ng/mL 03/26/2025 8:25 PM EDT [facility] Urine Creatinine 175.0 mg/dL 03/26/20 8:25 PM EDT [facility] Comment: Greater than 20: Consistent with valid sample Greater than 2 but less than 20: Possible dilution Less than 2: Questionable valid sample Urine STRUCTURE OF URINARY TRACT PROPER / Unknown 03/26/2025 6:10 PM EDT 03/26/2025 8:02 PM EDT Narrative [facility] - 03/26/2025 8:25 PM EDT These [...] Rick Knight MD URINE ORDERABLES Final Result Performing Organization Address City/State/[facility] Co de Phone Number [facility] [address] [place] [address] from Last 3 Months Insurance [facility] Care Teams Makeup Sales Consultant Relationship Specialty Start Date End Date No Pcp, Per Patient PCP - General 03/26/25
--- OUTSIDE RECORDS SUMMARY | 2025-05-15 15:17 | XMS_ITS ---
Author Organization [facility] Address [address] [place] [address] Care Team Providers Care Bow Rehairer Name Role Phone Unavailable Primary Care Provider Unavailabl e Hepatitis C Program Status:Active (Active) Start date:02/01/2024 Enrollment date:02/01/2024 Enrollment reason:HCV Continued Care and Services Coordination
--- OUTSIDE RECORDS SUMMARY | 2025-05-15 15:17 | XMS_ITS | Clinical Summary ---
Author Organization Healthcare Address [address] [id number] Care Team Providers Care Sheriff'S Sergeant Name Role Phone Unavailable Primary Care Provider Unavailabl e Allergies Active Allergy Reactions Criticality Noted Date Comments Doxepin Unknown - Patient st ates they do not know rxn details Low 02/02/2024 Pt cannot recall reaction details Medications * This document contains information received from the source organization and may not represent a complete record from that organization. albuterol 108 (90 Base) MCG/ACT inhaler Inhale 2 puffs 4 (four) times a day if needed for wheezing. Active calcium carbonate (Tums) 500 MG chewable tablet Chew 1 tablet (500 mg) 1 (one) time each day if needed for indigestion or heartburn. Active Active Problems Problem Noted Date Diagnosed Date Alcohol use disorder 02/01/2024 Hepatitis C antibody positive in blood Elevated LFTs 02/01/2024 GIB (gastrointestinal bleeding) 02/01/2024 Mild intermittent asthma without complication Marijuana use 02/01/2024 Tobacco use 02/01/2024 Acute blood loss anemia (ABLA) 02/01/2024 Family History Medical History Relation Name Comments Heart attack Father Glaucoma Mother No Known Problems Sister Relation Name Status Comments Father (Age 53) Mother Alive Sister Alive Social History Tobacco Use Types Packs/Day Years Used Date Smoking Tobacco: Every Day Cigarettes 0.3 15 Smokeless Tobacco: Never Tobacco Cessation:Ready to Q uit: No; Counseling Given: Yes Alcohol Use Standard Drinks/Week Comments Yes 0 (1 standard drink = 0.6 oz pur e alcohol) drinks 1 gallon of vodka daily Humiliation, Afraid, Rape, and Kick questionnair e Answer Date Recorded Within the last year, have y ou been afraid of your partner or ex-partner? No 02/03/2024 Within the last year, have y ou been humiliated or emotionally abused in other ways by your partner or ex-partner? No Within the last year, have y ou been kicked, hit, slapped, or otherwise physically hurt by your partner or ex-partner? No 02/03/2024 Within the last year, have y ou been raped or forced to have any kind of sexual activity by your partner or ex-partner? No 02/03/2024 Hunger Vital Sign Answer Date Recorded Within the past 12 months, y ou worried that your food would run out before you got the money to buy more. Never true 02/03/20 24 Within the past 12 months, t he food you bought just didn't last and you didn't have money to get more. Never true 02/03/2024 PRAPARE - Transportation Answer Date Re corded In the past 12 months, has l ack of transportation kept you from medical appointments or from getting medications? No 01/10 In the past 12 months, has l ack of transportation kept you from meetings, work, or from getting things needed for daily living? No 02/03/2024 Housing Stability Vital Sign Answer Elliot e Recorded In the last 12 months, was t here a time when you were not able to pay the mortgage or rent on time? No 02/03/2024 [address] Lived in the Last Year Not on f ile 02/03/2024 In the last 12 months, was t here a time when you did not have a steady place to sleep or slept in a long term (including now)? No 02/03/2024 CAGE ASSESSMENT Answer Date Recorded Cage unable to access Not on file 02/01/2024 Maximum number of drinks you had on a given occasion in the last month? 5 or more drinks 02/01/2024 How many alcoholic Beverages do you typically drink in a week? 15 or more per week 02/01/2024 Have you ever felt you shoul d CUT down on your drinking? 1 02/01/2024 Have you been ANNOYED by peo ple criticizing your drinking? 1 02/01/2024 Have you felt GUILTY about your drinking? 1 02/01/2024 Have you had a drink first t aimee in the morning (EYE-TELE TECH) to steady your nerves or to get rid of a hangover? 1 02/01/2024 CAGE Questionnaire Score 4 024 Utilities Answer Date Recorded In the past 12 months has e [employer], gas, oil, or water company threatened to shut off services in your home? No 02/03/2024 Sex and Gender Information Value Date Recorded Sex Assigned at Not on file Legal Sex Male 11:56 AM EDT Gender Identity Not on file Sexual Orientation Not on file Last Filed Vital Signs Vital Sign Reading Time Taken Comments Blood Pressure 128/85 02/03/2024 12:55 PM EDT Pulse 99 02/03/2024 12:55 PM EDT Temperature 36.7 C (98.1 F) 02/03/2024 12:55 PM EDT Respiratory Rate 18 02/03/2024 12:5 5 PM EDT Oxygen Saturation 96% 02/03/2024 7:58 AM EDT Inhaled Oxygen Concentration - - Weight 72.5 kg (159 lb 13.3 oz) 024 10:00 AM EDT Height 165.1 cm (5' 5 ) 02/02/2024 10:0 0 AM EDT Body Mass Index 26.6 02/02/2024 10:00 AM EDT Plan of Treatment Health Maintenance Due Date Last Done Comments [facility]-Depression Screening 1980 [facility]-Infant/Child/Adol SDOH Screenings 1980 [facility]-Obesity Intervention 1986 [facility]-Varicella Vaccines (1 of 2 - 13+ 2-dose series) 1993 HPV Vaccines (1 - Male 3-dos e series) 1995 [facility]- SDOH Screenings 1998 [facility]-Adult SDOH Screenings 1998 [facility]-DTaP,Tdap,and Td Vaccine s (1 - Tdap) 1999 [facility]-Hepatitis B Vaccines (1 of 3 - 19+ 3-dose series) 1999 [facility]-Pneumococcal Vaccine: Pediatrics (0 to 5 Years) and At-Risk Patients (6 to 49 Years) (1 of 2 - PCV) 1999 [id number]-48 Vaccine (1 - 20 24-25 season) 2024 [facility]-Influenza Vaccine ([place]as[place] n Ended) 2025 [facility]-Zoster Vaccines (1 of 2) 2030 [facility]-HIV Screening Completed 02/01/2024 [facility]-Hepatitis C Screening Completed 02/01/2024 [facility]-HIB Vaccines Aged Out No longer e ligible based on patient's age to complete this topic [facility]-Hepatitis A Vaccines Aged Out No longer eligible based on patient's age to complete this topic [facility]-IPV Vaccines Aged Out No longer e ligible based on patient's age to complete this topic [facility]-Rotavirus Vaccines Aged Out No lo nger eligible based on patient's age to complete this topic Procedures Procedure Name Priority Date/Time Associated Diagnosis Comments HEPATITIS C ANTIBODY - ED W/REFLEX TO HCV QUANT PCR STAT 02/01/2024 4:38 PM EDT ED HIV 1/2 ANTIBODY/ANTIGEN SCREEN WITH REFLEX TO HIV I/II DIFFERENTIATION STAT 02/01/2024 4:38 PM EDT from Last 3 Months or Most Recently Relevant to Health Maintenance Results * ED HIV 1/2 Antibody/Antigen Screen w/Reflex to HIV 1/2 Differentiation (02/01/2024 4:38 PM EDT) [facility] HIV 1 & 2 Antibody/Antigen Screen Non Reactive Non Reactive 02/01/2024 6:34 PM EDT [facility] Comment:Screening for HIV 1 & 2 antibodies, and P24 antigen is NONREACTIVE. No confirmatory testing is required. Blood Venous blood specimen / Unknown Venipuncture / Unknown 02/01/2024 4:38 PM EDT 02/01/2024 5:01 PM EDT Krista Woodruff MD LAB BLOOD ORDERABLES Final Resu lt [facility] [address] [place] [address] * (ABNORMAL) Hepatitis C Antibody - ED (02/01/2024 4:38 PM EDT) Hepatitis C Antibody Positive(A ) Negative 02/01/2024 6:38 PM EDT [facility] Blood Venous blood specimen / Unknown Venipuncture / Unknown 02/01/2024 4:38 PM EDT 02/01/2024 5:01 PM EDT us Krista Woodruff MD LAB BLOOD ORDERABLES Final Resu lt [facility] [address] [place] [address] from Last 3 Months or Most Recently Relevant to Health Maintenance Advance Directives * Full Code (Latest Code Status on File) Date Activated Date Inactivated Comments 02/01/2024 8:17 PM 02/03/2024 4:40 PM Question Answer Comments Patient has decision-making capacity? Yes
--- NOTE | 2025-05-15 15:18 | CT_ITS ---
PROCEDURE INFORMATION: Exam: CT Abdomen And Pelvis With Contrast Exam date and time: 05/15/2025 4:48 PM Age: 44 years old Clinical indication: Abdominal pain; Additional info: Diffuse right sided abd pain and distention TECHNIQUE: Imaging protocol: Computed tomography of the abdomen and pelvis with contrast. Radiation optimization: All CT scans at this facility use at least one of these dose optimization techniques: automated exposure control; mA and/or kV adjustment per patient size (includes targeted exams where dose is matched to clinical indication); or iterative reconstruction. Contrast material: ISOVUE; Contrast volume: 75 ml; Contrast route: IV; COMPARISON: CT ABDOMEN PELVIS W CON 02/01/2024 11:37 AM FINDINGS: Liver: There are stable findings of diffuse hepatic steatosis. No focal hepatic abnormality. Gallbladder and biliary ducts: Large calcified gallstone again noted in the gallbladder. No gallbladder wall thickening. No biliary ductal dilation. Pancreas: Normal. No ductal dilation. Spleen: Normal. No splenomegaly. Adrenal glands: Normal. No mass. Kidneys and ureters: Stable single small calyceal stone in the left kidney. Right kidney appears normal. No hydronephrosis. Stomach and bowel: Unremarkable. No obstruction. No mucosal thickening. Appendix: The appendix is visualized and appears normal. Intraperitoneal space: Unremarkable. No free air. No significant fluid collection. Vasculature: Unremarkable. No abdominal aortic aneurysm. Lymph nodes: Unremarkable. No enlarged lymph nodes. Urinary bladder: Unremarkable as visualized. Reproductive: Unremarkable as visualized. Bones/joints: Unremarkable. No acute fracture. Soft tissues: Unremarkable. IMPRESSION: Stable findings of hepatic steatosis and cholelithiasis. Minimal left nephrolithiasis also again noted. No acute interval change compared to prior study.
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
[2025-05-15 15:45] LABS: Barbiturates Screen,Urine Negative ng/ml (<200)
[2025-05-15 15:46] LABS: Benzodiazepines Screen,Urine Negative ng/ml (<200)
[2025-05-15 15:48] LABS: Methadone Screen,Urine Negative ng/ml (<300)
[2025-05-15 15:49] LABS: Opiate Screen,Urine Negative ng/ml (<300); Phencyclidine Screen,Urine Negative ng/ml (<25)
[2025-05-15] MEDS: ONDANSETRON 4MG/2ML VIAL 4 MG IV (15:49)
[2025-05-15] MEDS: LACTATED RINGERS 1000ML 1,000 ML 999 ML IV (15:50)
[2025-05-15 15:57] LABS: Lactate Venous 1.9 mmol/L (0.4-2.0); VBG HCO3 17.6 mmol/L (23-30); VBG PH 7.50 mmol/L (7.31-7.41); VBG PO2 100.8 mmol/L (28-40)
[2025-05-15 15:59] LABS: VBG PCO2 23.4 mmol/L (35-51)
[2025-05-15 16:00] LABS: Hematocrit 45.8 % (42.0-52.0); Hemoglobin 15.8 g/dL (14.1-18.0); Immature Granulocytes % 0.2 %; Mean Corpuscular HGB Conc 34.5 g/dL (31.8-35.4); Mean Corpuscular Hemoglobin 32.5 pg (27.0-31.2); Mean Corpuscular Volume 94.2 fl (80-94); Nucleated Red Blood Cells % 0 %; Platelet Count 194 K/mm3 (142-424); Red Blood Count 4.86 M/mm3 (4.60-6.20); Red Cell Distribution Width-SD 45.8 fL; White Blood Count 6.6 K/mm3 (4.8-10.8)
[2025-05-15 16:06] LABS: INR 1.08 (0.9-1.1); Prothrombin Time 11.9 seconds (10.1-12.5)
--- NOTE | 2025-05-15 16:11 | PC.NURSE ---
Zak HOLLIDAY to bedside to perform USIV
--- NOTE | 2025-05-15 16:12 | PC.NURSE ---
notified lab to come draw labs that hemolyzed
[2025-05-15 16:34] LABS: Alanine Aminotransferase 288 U/L (12-78); Albumin Level 4.6 g/dl (3.5-5.0); Albumin/Globulin Ratio 1.0 (1.1-1.8); Alkaline Phosphatase 72 U/L (38-126); Anion Gap 17.8 mEq/L (5-15); Aspartate Amino Transferase 351 U/L (17-59); Bilirubin,Total 0.9 mg/dl (0.2-1.3); Blood Urea Nitrogen 9 mg/dl (9-20); Calcium 9.5 mg/dl (8.4-10.2); Carbon Dioxide 23 mmol/L (22.0-30.0); Chloride 104 mmol/L (98-107); Creatinine Clearance Estimated 116 mL/min (50-200); Creatinine,Serum 0.80 mg/dl (0.66-1.25); Estimated Glomerular Filt Rate 105 ml/min (>60); GFR (African American) 127 ML/MIN (>60); Globulin 4.5 g/dL (1.3-3.2); Glucose 87 mg/dl (74-100); Lipase 213 U/L (23-300); Magnesium 1.7 mg/dl (1.6-2.3); Potassium 3.8 mmoL/L (3.5-5.1); Sodium 141 mmol/L (136-145); Total Protein,Serum 9.1 g/dl (6.3-8.2)
[2025-05-15] MEDS: IOPAMIDOL-370 (76%);100ML BOTTLE 75 ML IV (16:50)
[2025-05-15] MEDS: SODIUM CHLORIDE 0.9% 10ML SYR (RAD ONLY) 10 ML IV (16:50)
[2025-05-15 17:33] LABS: Hepatitis C Ab Qual. W/ RFX REACTIVE (Negative)
[2025-05-19 18:55] LABS: Amphetamine (GC/MS) 1309 ng/mL (Cutoff=500); Methamphetamine (GC/MS) >3000 ng/mL (Cutoff=500)
--- NOTE | 2025-05-25 15:42 | PEERSUPPORT ---
Peer Support Note Patient Information Patient Information: DOS: 05/18/2025 Ps attempted to make contact, no answer, left voicemail for return phone call.
== END 2025-05-15 19:19 | disposition home or self-care (01) ==
PROVIDERS: Emergency Provider Student in an Organized Health Care Education/Training Program
DX: R10.84 Generalized abdominal pain (principal); F10.129 Alcohol abuse with intoxication, unspecified; F15.90 Other stimulant use, unspecified, uncomplicated; K70.10 Alcoholic hepatitis without ascites; K70.30 Alcoholic cirrhosis of liver without ascites; K80.20 Calculus of gallbladder without cholecystitis without obstruction; B19.20 Unspecified viral hepatitis C without hepatic coma; F17.210 Nicotine dependence, cigarettes, uncomplicated; Z11.59 Encounter for screening for other viral diseases; Z11.4 Encounter for screening for human immunodeficiency virus [HIV]; Y90.8 Blood alcohol level of 240 mg/100 ml or more
CPT/HCPCS: 74177; 80053; 80307; 80320; 80324; 82803; 83690; 83735; 85025; 85610; 86803; 87389; 87522; 96361; 96374; 99291; J2405; J7120; Q9967